=== PATIENT | male | born 2000 | race African-American/Black ===

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

== ENCOUNTER 2023-01-03 18:33 | Emergency (ER) | payer OTHER ==
[2023-01-03 18:36] VITALS: BP 121/68; PULSE 98; RESP 18; TEMP 98.5; BMI 28.8
[2023-01-03] MEDS ORDERED: IBUPROFEN 600 MG TABLET (FP) PO ONE ×2 (19:23→19:49)
== END 2023-01-03 21:08 | disposition home or self-care (01) ==
LOC: JERFT 18:33
DX: J02.9 Acute pharyngitis, unspecified (principal); R09.81 Nasal congestion; R05.1 Acute cough
CPT/HCPCS: 0241U-QW; 87651; 99283-25